=== PATIENT | female | born 1955 | race Caucasian/White ===

== ENCOUNTER 2018-01-29 07:44 | Day surgery (SDC) | payer BC ==
[2018-01-27 14:28] VITALS: BMI 28.7
[~2018-01-29 07:44] MED LIST: LACTATED RINGERS 1,000 ML IV SCH; LIDOCAINE 1% 20 ML VIAL (10MG/ML) FOR IV START INTRADERMA PRN
[2018-01-29 08:17] VITALS: RESP 20; TEMP 97.6
[2018-01-29 08:20] LABS: Glucose,Whole Blood 122 mg/dL (75-99)
[2018-01-29] MEDS ORDERED: PROPOFOL 10 MG/ML 20 ML VIAL IV ONE (08:32)
--- NOTE | 2018-01-29 08:40 | P.GSHP ---
History of Present Illness H&P Date: 01/29/18 CHIEF COMPLAINT: Colon screen HISTORY OF PRESENT ILLNESS: The patient is a 62-year-old female who presents for colon screen. Lower endoscopy was offered for further evaluation and management. PAST MEDICAL HISTORY: Please see list. PAST SURGICAL HISTORY: Please see list. MEDICATIONS: Please see list. ALLERGIES: Please see list. SOCIAL HISTORY: No illicit drug use FAMILY HISTORY: No reports of Crohn disease or ulcerative colitis. REVIEW OF ORGAN SYSTEMS: CONSTITUTIONAL: No reports of fevers or chills. PHYSICAL EXAM: VITAL SIGNS: Stable GENERAL: Well-developed pleasant in no acute distress. HEENT: No scleral icterus. Extraocular movements grossly intact. Moist buccal mucosa. NECK: Supple without lymphadenopathy. CHEST: Unlabored respirations. Equal bilateral excursions. CARDIOVASCULAR: Regular rate and rhythm. Distal 2+ pulses. ABDOMEN: Soft, nontender, nondistended. MUSCULOSKELETAL: No clubbing, cyanosis, or edema. ASSESSMENT: 1. Colon screen. PLAN: 1. Recommend proceeding with a lower endoscopy Past Medical History Past Medical History: Diabetes Mellitus, Hypertension, Osteoarthritis (OA) History of Any Multi-Drug Resistant Organisms: None Reported Past Surgical History: Appendectomy Past Anesthesia/Blood Transfusion Reactions: No Reported Reaction, Motion Sickness Past Psychological History: No Psychological Hx Reported Smoking Status: Never smoker Past Alcohol Use History: Rare Past Drug Use History: None Reported - Past Family History Mother Family Medical History: Cancer Additional Family Medical History / Comment(s): lung cancer Medications and Allergies Home Medications Medication Instructions Recorded Confirmed Type Aspirin [Adult Low Dose Aspirin EC] 81 mg PO DAILY 01/27/18 01/29/18 History Cholecalciferol [Vitamin D3] 1,000 unit PO DAILY 01/27/18 01/29/18 History Glucosam/Esteban-Msm1/C/Iván/Bosw 1 each PO DAILY 01/27/18 01/29/18 History [Glucosamine-Chondroitin Tablet] Lisinopril [Zestril] 5 mg PO DAILY 01/27/18 01/29/18 History Multivitamins, Thera [Multivitamin 1 tab PO DAILY 01/27/18 01/29/18 History (formulary)] Naproxen Sodium [Aleve] 440 mg PO ONCE PRN 01/27/18 01/29/18 History Rosuvastatin Calcium [Crestor] 20 mg PO DAILY 01/27/18 01/29/18 History metFORMIN HCL 1,000 mg PO BID-W/MEALS 01/27/18 01/29/18 History Allergies Allergy/AdvReac Type Severity Reaction Status Date / Time No Known Allergies Allergy Verified 01/27/18 14:15 Surgical - Exam Vital Signs Temp Pulse Resp BP Pulse Ox 97.6 F 71 20 131/76 98 01/29/18 08:16 01/29/18 08:16 01/29/18 08:16 01/29/18 08:16 01/29/18 08:16 Results - Labs Abnormal Lab Results - Last 24 Hours (Table) 01/29/18 Range/Units 08:17 POC Glucose (mg/dL) 122 H (75-99) mg/dL
--- NOTE | 2018-01-29 09:20 | P.PCN ---
Date of Procedure: 01/29/18 Description of Procedure: PREOPERATIVE DIAGNOSIS: Colonoscopy screening, initial POSTOPERATIVE DIAGNOSIS: Colonoscopy screening, initial Diverticulosis, scattered Melanosis coli Sigmoid colitis External prolapsed hemorrhoids OPERATION: Colonoscopy to the ileocecal valve and appendiceal orifice. Colonoscopy with cold forceps biopsy sigmoid colon SURGEON: Luiza Reynoso MD. ANESTHESIA: MAC. INDICATIONS: The patient is a 62-year-old female who presents for colonoscopy screening. This is her first colon screening. Benefits and risks were described and informed consent was obtained. DESCRIPTION OF PROCEDURE: The patient had undergone Gatorade, MiraLAX and Dulcolax prep. She had been brought into the operating room and laid in the left lateral decubitus position. After adequate intravenous sedation, the rectum was examined with 2% lidocaine jelly. External hemorrhoids were encountered. The rectal tone was within normal limits. No lesions were palpated in the rectal vault. An Olympus PEDIATRIC colonoscope was advanced until the ileocecal valve and appendiceal orifice were clearly viewed. The colon was very tortuous requiring abdominal wall pressure. The prep was excellent with clear visualization of the mucosal folds. The scope was removed with visualization of each mucosal fold. Scattered diverticulosis was encountered. No colonic polyps were found. Focal colitis was found very mild at the sigmoid colon at 30 cm and cold forceps biopsy. Retroflexion of the scope demonstrated grade 1 internal hemorrhoids without active bleeding or inflammation. The colon was desufflated. The patient had tolerated the procedure well. Withdrawal time was over 6 minutes. FINDINGS: Internal hemorrhoids, grade 1 External prolapsed hemorrhoids, grade 3 No arteriovenous malformations. No adenomatous polyps. Focal colitis with cold forceps biopsies obtained. Tortuous sigmoid colon requiring pediatric colonoscope RECOMMENDATIONS: Lower endoscopy in 2024, 7 to 10 years due to focal colitis; however down to 5 years with family history of colon polyps or cancer. Plan - Discharge Summary New Discharge Prescriptions: No Action metFORMIN HCL 1,000 mg PO BID-W/MEALS Rosuvastatin Calcium [Crestor] 20 mg PO DAILY Lisinopril [Zestril] 5 mg PO DAILY Naproxen Sodium [Aleve] 440 mg PO ONCE PRN PRN Reason: Pain Multivitamins, Thera [Multivitamin (formulary)] 1 tab PO DAILY Cholecalciferol [Vitamin D3] 1,000 unit PO DAILY Glucosam/Esteban-Msm1/C/Iván/Bosw [Glucosamine-Chondroitin Tablet] 1 each PO DAILY Aspirin [Adult Low Dose Aspirin EC] 81 mg PO DAILY Discharge Medication List Aspirin [Adult Low Dose Aspirin EC] 81 mg PO DAILY 01/27/18 [History] Cholecalciferol [Vitamin D3] 1,000 unit PO DAILY 01/27/18 [History] Glucosam/Esteban-Msm1/C/Iván/Bosw [Glucosamine-Chondroitin Tablet] 1 each PO DAILY 01/27/18 [History] Lisinopril [Zestril] 5 mg PO DAILY 01/27/18 [History] Multivitamins, Thera [Multivitamin (formulary)] 1 tab PO DAILY 01/27/18 [History ] Naproxen Sodium [Aleve] 440 mg PO ONCE PRN 01/27/18 [History] Rosuvastatin Calcium [Crestor] 20 mg PO DAILY 01/27/18 [History] metFORMIN HCL 1,000 mg PO BID-W/MEALS 01/27/18 [History]
[2018-01-29 09:23] VITALS: BP 114/64; PULSE 64
== END 2018-01-29 09:41 | disposition home or self-care (01) ==
LOC: ORWHC2ENDO 07:44
PROVIDERS: ATTEND Surgery Plastic and Reconstructive Surgery
DX: Z12.11 Encounter for screening for malignant neoplasm of colon (principal); K64.0 First degree hemorrhoids; K64.8 Other hemorrhoids; K52.9 Noninfective gastroenteritis and colitis, unspecified; Q43.8 Other specified congenital malformations of intestine; K57.30 Diverticulosis of large intestine without perforation or abscess without bleeding; K63.89 Other specified diseases of intestine; I10 Essential (primary) hypertension; E78.5 Hyperlipidemia, unspecified; E11.9 Type 2 diabetes mellitus without complications; Z79.84 Long term (current) use of oral hypoglycemic drugs; Z79.82 Long term (current) use of aspirin; Z79.899 Other long term (current) drug therapy
CPT/HCPCS: 88305; 45380; J2704

== ENCOUNTER 2023-05-08 09:11 | Day surgery (SDC) | payer BC, MEDICARE ==
[2023-05-07 11:24] VITALS: BMI 28.3
--- NOTE | 2023-05-08 08:21 | P.GSHP ---
History of Present Illness H&P Date: 05/08/23 CHIEF COMPLAINT: Colon screen HISTORY OF PRESENT ILLNESS: The patient is a 67-year-old female who presents for colon screen. Lower endoscopy was offered for further evaluation and management. PAST MEDICAL HISTORY: Please see list. PAST SURGICAL HISTORY: Please see list. MEDICATIONS: Please see list. ALLERGIES: Please see list. SOCIAL HISTORY: No illicit drug use FAMILY HISTORY: No reports of Crohn disease or ulcerative colitis. REVIEW OF ORGAN SYSTEMS: CONSTITUTIONAL: No reports of fevers or chills. PHYSICAL EXAM: VITAL SIGNS: Stable GENERAL: Well-developed pleasant in no acute distress. HEENT: No scleral icterus. Extraocular movements grossly intact. Moist buccal mucosa. NECK: Supple without lymphadenopathy. CHEST: Unlabored respirations. Equal bilateral excursions. CARDIOVASCULAR: Regular rate and rhythm. Distal 2+ pulses. ABDOMEN: Soft, nontender, nondistended. MUSCULOSKELETAL: No clubbing, cyanosis, or edema. ASSESSMENT: 1. Colon screen. PLAN: 1. Recommend proceeding with a lower endoscopy Past Medical History Past Medical History: Diabetes Mellitus, Eye Disorder, Hearing Disorder / Deafness, Hyperlipidemia, Hypertension, Osteoarthritis (OA) Additional Past Medical History / Comment(s): cataracts no surgery yet,tinnitus, bells palsy 2010 History of Any Multi-Drug Resistant Organisms: None Reported Past Surgical History: Appendectomy Past Anesthesia/Blood Transfusion Reactions: No Reported Reaction, Motion Sickness Smoking Status: Never smoker - Past Family History Mother Family Medical History: Cancer Additional Family Medical History / Comment(s): lung cancer Medications and Allergies Home Medications Medication Instructions Recorded Confirmed Type Aspirin [Adult Low Dose Aspirin EC] 81 mg PO DAILY 01/27/18 05/07/23 History Cholecalciferol [Vitamin D3] 1,000 unit PO DAILY 01/27/18 05/07/23 History Glucosam/Esteban-Msm1/C/Iván/Bosw 1 each PO DAILY 01/27/18 05/07/23 History [Glucosamine-Chondroitin Tablet] Multivitamins, Thera [Multivitamin 1 tab PO DAILY 01/27/18 05/07/23 History (formulary)] Naproxen Sodium [Aleve] 440 mg PO ONCE PRN 01/27/18 05/07/23 History Rosuvastatin Calcium [Crestor] 20 mg PO DAILY 01/27/18 05/07/23 History lisinopriL [Zestril] 5 mg PO DAILY 01/27/18 05/07/23 History metFORMIN HCL [Glucophage] 1,000 mg PO DAILY 01/27/18 05/07/23 History Elderberry Fruit [Elderberry] 350 mg PO DAILY 05/07/23 05/07/23 History Allergies Allergy/AdvReac Type Severity Reaction Status Date / Time No Known Allergies Allergy Verified 05/07/23 11:03
[2023-05-08] MEDS ORDERED: LACTATED RINGERS 1,000 ML IV ONE (10:18)
[2023-05-08] MEDS ORDERED: LIDOCAINE 1% (10MG/ML) FOR IV START INTRADERMA ONE (10:18)
[2023-05-08 10:19] LABS: Glucose,Whole Blood 101 mg/dL (70-110)
[2023-05-08 10:22] VITALS: TEMP 97.2
[2023-05-08] MEDS ORDERED: PROPOFOL 10 MG/ML 20 ML VIAL IV ONE (10:50)
[2023-05-08] MEDS ORDERED: IV FLUID CONTINUATION 1,000 ML IV ONE (11:16)
--- NOTE | 2023-05-08 11:28 | P.PCN ---
Date of Procedure: 05/08/23 Description of Procedure: PREOPERATIVE DIAGNOSIS: Colonoscopy screening. POSTOPERATIVE DIAGNOSIS: Colonoscopy screening. Diverticulosis, scattered. Partial large bowel obstruction, sigmoid colon OPERATION: Colonoscopy to the cecum, ileocecal valve and appendiceal orifice. SURGEON: Luiza Reynoso MD. ANESTHESIA: MAC. INDICATIONS: The patient is a 61-year-old female who presents for colonoscopy screening. Benefits and risks were described and informed consent was obtained. DESCRIPTION OF PROCEDURE: The patient had undergone Sutab prep. The patient had been brought into the operating room and laid in the left lateral decubitus position. After adequate intravenous sedation, the rectum was examined with 2% lidocaine jelly. External hemorrhoids were encountered. The rectal tone was within normal limits. No lesions were palpated in the rectal vault. An Olympus colonoscope was advanced until the cecum, ileocecal valve and appendiceal orifice were clearly viewed. The prep was excellent. Scattered diverticulosis was encountered with partial large bowel obstruction at 30 cm from the anal verge. No colonic polyps were found. No evidence of focal colitis was found. Retroflexion of the scope demonstrated grade 3 internal hemorrhoids without active bleeding or inflammation. The colon was desufflated. The patient had tolerated the procedure well. Withdrawal time was over 6 minutes. FINDINGS: Aronchick preparation quality scale 1+ (1-5) Internal hemorrhoids, grade 3 External prolapsed hemorrhoids, grade 3 No arteriovenous malformations. No adenomatous polyps. Moderate to severe sigmoid diverticulosis with partial obstruction, 30 cm from anal verge No focal colitis. RECOMMENDATIONS: Lower endoscopy in 5 years, 2027 May benefit from partial resection of colon Plan - Discharge Summary Discharge Rx Participant: No New Discharge Prescriptions: Continue metFORMIN HCL [Glucophage] 1,000 mg PO DAILY Rosuvastatin Calcium [Crestor] 20 mg PO DAILY lisinopriL [Zestril] 5 mg PO DAILY Naproxen Sodium [Aleve] 440 mg PO ONCE PRN PRN Reason: Pain Multivitamins, Thera [Multivitamin (formulary)] 1 tab PO DAILY Cholecalciferol [Vitamin D3 (25 Mcg = 1000 Iu)] 1,000 unit PO DAILY Glucosam/Esteban-Msm1/C/Iván/Bosw [Glucosamine-Chondroitin Tablet] 1 each PO DAILY Aspirin [Adult Low Dose Aspirin EC] 81 mg PO DAILY Elderberry Fruit [Elderberry] 350 mg PO DAILY Discharge Medication List Aspirin [Adult Low Dose Aspirin EC] 81 mg PO DAILY 01/27/18 [History] Cholecalciferol [Vitamin D3 (25 Mcg = 1000 Iu)] 1,000 unit PO DAILY 01/27/18 [History] Glucosam/Esteban-Msm1/C/Iván/Bosw [Glucosamine-Chondroitin Tablet] 1 each PO DAILY 01/27/18 [History] Multivitamins, Thera [Multivitamin (formulary)] 1 tab PO DAILY 01/27/18 [History] Naproxen Sodium [Aleve] 440 mg PO ONCE PRN 01/27/18 [History] Rosuvastatin Calcium [Crestor] 20 mg PO DAILY 01/27/18 [History] lisinopriL [Zestril] 5 mg PO DAILY 01/27/18 [History] metFORMIN HCL [Glucophage] 1,000 mg PO DAILY 01/27/18 [History] Elderberry Fruit [Elderberry] 350 mg PO DAILY 05/07/23 [History] Follow up Appointment(s)/Referral(s): Luiza Reynoso MD [STAFF PHYSICIAN] - 05/28/23 2:00 pm Patient Instructions/Handouts: *Surgery [facility] - (Anesthesia) Discharge Instructions Outpatient Surgery, Colonoscopy (DC), Diverticulosis (DC), Diverticulosis Diet (GEN) Activity/Diet/Wound Care/Special Instructions: Repeat colonoscopy 5 years, 2027 Discharge Disposition: HOME SELF-CARE
[2023-05-08 11:46] VITALS: BP 115/78; PULSE 78
[2023-05-08 11:47] VITALS: RESP 18
== END 2023-05-08 11:59 | disposition home or self-care (01) ==
LOC: ORWHC2ENDO 09:11
PROVIDERS: ATTEND Surgery Plastic and Reconstructive Surgery
DX: Z12.11 Encounter for screening for malignant neoplasm of colon (principal); K57.30 Diverticulosis of large intestine without perforation or abscess without bleeding; K56.600 Partial intestinal obstruction, unspecified as to cause; K64.2 Third degree hemorrhoids; I10 Essential (primary) hypertension; E78.5 Hyperlipidemia, unspecified; Z79.84 Long term (current) use of oral hypoglycemic drugs; Z79.82 Long term (current) use of aspirin; Z79.899 Other long term (current) drug therapy; M19.90 Unspecified osteoarthritis, unspecified site; Z90.49 Acquired absence of other specified parts of digestive tract; Z80.1 Family history of malignant neoplasm of trachea, bronchus and lung
CPT/HCPCS: J2704; G0121